=== PATIENT | female | born 1940 | race African-American/Black ===

== ENCOUNTER 2016-12-02 23:27 | Emergency (ER) | payer MEDICARE, MEDICAID | END 2016-12-03 02:38 | disposition home or self-care (01) | LOC: ER 23:27 | DX: R10.9 Unspecified abdominal pain (principal); Z79.899 Other long term (current) drug therapy; Z87.891 Personal history of nicotine dependence | CPT/HCPCS: 36415; 80053; 81003; 83690; 85025 ==